=== PATIENT | female | born 1975 | race Caucasian/White ===

== ENCOUNTER 2021-03-20 10:41 | Outpatient (CLI) | payer BC | END 2021-03-20 10:42 | disposition home or self-care (01) | LOC: CSHMAMMO 10:41 | PROVIDERS: ATTEND Obstetrics & Gynecology | DX: Z12.31 Encounter for screening mammogram for malignant neoplasm of breast (principal); N64.89 Other specified disorders of breast; Z80.3 Family history of malignant neoplasm of breast | CPT/HCPCS: 77063; 77067 ==

== ENCOUNTER 2021-03-21 12:46 | Outpatient (CLI) | payer BC | END 2021-03-21 12:47 | disposition home or self-care (01) | LOC: CSHMAMMO 12:46 | PROVIDERS: ATTEND Obstetrics & Gynecology | DX: N64.89 Other specified disorders of breast (principal) | CPT/HCPCS: G0279 ==

== ENCOUNTER 2023-03-12 12:12 | Emergency (ER) | payer OTHER ==
[2023-03-12] MEDS ORDERED: Ondansetron PF 4 MG/2 ML Vial ONE (13:00)
[2023-03-12 13:24] LABS: #Eosinphils 0.1 10x3/uL (0.0-0.5); #Monocytes 0.6 10x3/uL (0.0-1.1); #Neutrophils 2.9 10x3/uL (1.5-8.4); %Basophils 0.8 % (0.0-2.0); %Eosinophils 2.6 % (0.0-6.0); %Lymphocytes 29.6 % (18.0-47.0); %Monocytes 11.3 % (0.0-10.0); %Neutrophils 53.8 % (40.0-75.0); Hematocrit 37.8 % (34.9-44.5); Hemoglobin 12.5 g/dL (12.0-15.5); Mean Corpuscular HGB CONC 33.1 g/dL (32.0-36.0); Mean Corpuscular Hemoglobin 30.3 pg (27.0-33.0); Mean Corpuscular Volume 91.5 fl (81.6-98.3); Mean Platelet Volume 9.4 fl (7.4-10.4); Platelet Count 312 10x3/uL (150-450); RBC Distribution Width 12.3 % (11.5-14.5); Red Blood Cell (RBC) Count 4.13 10x6/uL (3.90-5.03); White Blood Cell (WBC) Count 5.3 10x3/uL (3.5-10.5)
[2023-03-12 13:37] LABS: Anion Gap 16 mmol/L (10-20); BUN (Urea Nitrogen) 14 mg/dL (7.0-18.7); Calc. Creatinine Clearance 0 mL/min (70-130); Carbon Dioxide 25 mmol/L (22-29); Chloride 103 mmol/L (98-107); Potassium 4.1 mmol/L (3.5-5.1); Sodium 140 mmol/L (136-145)
[2023-03-12 13:38] LABS: ALT (SGPT) 62 U/L (8-55); AST (SGOT) 32 U/L (5-34); Albumin 3.9 g/dL (3.5-5.0); Alkaline Phosphatase 72 U/L (40-110); Bilirubin, Total 0.4 mg/dL (0.2-1.2); Calcium 9.4 mg/dL (7.8-10.44); Estimated GFR 71; Globulin 3.1 g/dL (2.4-3.5); Glucose 97 mg/dL (70-105); Magnesium 1.9 mg/dL (1.6-2.6)
[2023-03-12 13:48] LABS: Bilirubin Neg (Negative); Blood, Urine 10 (Negative); Clarity Slightly Cloudy (Clear); Glucose, Urine (Dipstick) Normal (Negative); Ketone, Urine Negative (Negative); Leukocyte 500 (Negative); Nitrite Negative (Negative); Protein, Urine (Dipstick) 15 mg/dl (Neg-Trace); Urobilinogen Normal mg/dL (Less than 2)
[2023-03-12 14:02] LABS: Bacteria/HPF 1+ HPF (None Seen); CAUTI Indications for Culture Fever or rigors; Renal Epithelial 0-3 HPF (None Seen); Squamous Epithelial 0-3 HPF (0-3); Transitional Epithelial 0-3 HPF (None Seen)
[2023-03-12 14:03] LABS: Yeast-Budding 1+ HPF (None Seen)
[2023-03-12] MEDS ORDERED: cefTRIAXone (ROCEPHIN) 1 GM VIAL ONE (15:31)
== END 2023-03-12 15:40 | disposition home or self-care (01) ==
LOC: CSHERS 12:12
DX: N39.0 Urinary tract infection, site not specified (principal)
CPT/HCPCS: 83735; 93005; 96374; 96375; J0696; J2405

== ENCOUNTER 2023-04-11 09:02 | Outpatient (CLI) | payer OTHER | END 2023-04-11 09:03 | disposition home or self-care (01) | LOC: CSHMAMMO 09:02 | PROVIDERS: ATTEND Obstetrics & Gynecology | DX: Z12.31 Encounter for screening mammogram for malignant neoplasm of breast (principal); Z80.3 Family history of malignant neoplasm of breast | CPT/HCPCS: 77063; 77067 ==

== ENCOUNTER 2023-09-24 12:10 | Outpatient (CLI) | payer BC | END 2023-09-24 12:11 | disposition home or self-care (01) | LOC: CSHRAD 12:10 | PROVIDERS: ATTEND Family Medicine Sports Medicine | DX: N20.0 Calculus of kidney (principal) | CPT/HCPCS: 74018 ==

== ENCOUNTER 2024-04-16 09:27 | Outpatient (CLI) | payer BC | END 2024-04-16 09:28 | disposition home or self-care (01) | LOC: CSHMAMMO 09:27 | PROVIDERS: ATTEND Obstetrics & Gynecology | DX: Z12.31 Encounter for screening mammogram for malignant neoplasm of breast (principal); Z80.3 Family history of malignant neoplasm of breast | CPT/HCPCS: 77063; 77067 ==

== ENCOUNTER 2025-04-21 14:24 | Outpatient (CLI) | payer BC | END 2025-04-21 14:25 | disposition home or self-care (01) | LOC: CSHMAMMO 14:24 | PROVIDERS: ATTEND Obstetrics & Gynecology | DX: Z12.31 Encounter for screening mammogram for malignant neoplasm of breast (principal); Z80.3 Family history of malignant neoplasm of breast | CPT/HCPCS: 77063; 77067 ==